=== PATIENT | female | born 1970 | race Asian ===

== ENCOUNTER 2017-06-20 11:43 | Emergency (ER) | payer BC ==
[~2017-06-20] VITALS: Ht 170.2 cm; Wt 59.9 kg
[2017-06-20 12:05] VITALS: Ht 170.2 cm; Wt 59.9 kg
[2017-06-20 14:58] VITALS: BP 115/77
== END 2017-06-20 14:58 | disposition home or self-care (01) ==
LOC: ED 11:43
DX: S61.412A Laceration without foreign body of left hand, initial encounter (principal); W26.0XXA Contact with knife, initial encounter; Y93.89 Activity, other specified; Y92.89 Other specified places as the place of occurrence of the external cause; Y99.8 Other external cause status
CPT/HCPCS: 90715; J2001

== ENCOUNTER 2017-06-22 06:56 | Emergency (ER) | payer BC ==
[~2017-06-22] VITALS: Ht 167.6 cm; Wt 61.2 kg
[2017-06-22 07:01] VITALS: Ht 167.6 cm; Wt 61.2 kg
[2017-06-22 07:34] VITALS: BP 110/66
== END 2017-06-22 07:34 | disposition home or self-care (01) ==
LOC: ED 06:56
DX: S61.412D Laceration without foreign body of left hand, subsequent encounter (principal); X58.XXXD Exposure to other specified factors, subsequent encounter